=== PATIENT | male | born 1990 | race Caucasian/White ===

== ENCOUNTER 2023-09-19 13:45 | Emergency (ER) | payer MEDICAID, SELFPAY ==
[2023-09-19 13:46] VITALS: BP 137/89; PULSE 91; RESP 18; TEMP 36.4; O2SAT 99; BMI 27.4
--- NOTE | 2023-09-19 13:56 | EDS_ITS ---
HPI History of Present Illness Chief Complaint: Dental PFSH PFS Medical History no medical history Home Medications ?Medication ?Instructions ?Recorded ?Last Taken ?Type amoxicillin 875 mg-potassium 1 tab PO BID 7 days #14 tabs 09/19/23 Unknown Rx clavulanate 125 mg tablet Allergy/AdvReac Type Severity Reaction Status Date / Time No Known Allergies Allergy Verified 03/17/21 13:14 Social History (System 03/17/21 @ 13:14 by Venecia Andrea) Smoking Status: Current every day smoker tobacco type: cigarettes EXAM Physical Exam Const Vital Signs: 09/19/23 13:46 Temperature 97.5 F L Temperature Source Temporal Pulse Rate 91 Respiratory Rate 18 Blood Pressure 137/89 H Blood Pressure Mean 105 Pulse Ox 99 Oxygen Delivery Method Room [facility] MDM MDM Narrative Medical decision making narrative: HISTORY OF PRESENT ILLNESS: 32-year-old male presents with dental pain from cracked tooth. REVIEW OF SYSTEMS: Pertinent positives: dental pain Pertinent negatives: fever, sore thoat. PHYSICAL EXAM: Nursing triage notes reviewed, Vital signs reviewed Constitutional: please see mdm HENT: MMM, no evidence of dental abscess, no submandibular edema or induration, no tonsillar exudates or erythema, uvula midline, patient was controlling secretions, no drooling, no trimus, no dysphonia Eyes: Pupils equal round and reactive to light, Extraocular muscles intact Neck: No stridor, no JVD, full neck ROM Lungs: Clear to auscultation, No wheezing or rales. No increased work of breathing, no conversational dyspnea, no accessory muscle use, no nasal flaring. No respiratory distress noted Heart: Regular rate and rhythm, No murmurs, No rubs and No gallops, 2+ distal pulses (radial, femoral, posterior tibial) in all extremities MEDICAL DECISION MAKING: Chief Complaint: Dental pain MDM Narrative: The patient was hemodynamically stable, afebrile, nontoxic-appearing. Exam with dental decay and a chipped tooth on the right lower molar region. This likely the source of his pain. I considered the following differential diagnosis: Dental abscess, ANUG, Ludewig's angina, RPA, [employer], dental caries, gingivitis No clinical evidence of Alberto angina, ANUG, RPA, [employer] Gave prophylactic antimicrobial therapy. Shared decision making: I will have a discussion with the patient and or visitors regarding risk/benefits of further testing or admission. They will be made aware of of the risk/benefits inherent in this decision they will be given the opportunity to voice understanding. Impression: 1. Dental caries 2. Dental pain 3. Chronic tooth avulsion Disposition: Discharge This note was generated with [employer] dictation software. It may contain incorrect words, spelling, and punctuation that were not noted in review of the chart prior to signing. Discharge Plan Triage Chief Complaint: Dental ED Provider: Jamari Monge Dx/Rx/DC Orders Instructions: Dental Trauma Prescriptions: New amoxicillin-pot clavulanate 875-125 mg tablet 1 tab PO BID 7 Days Qty: 14 0RF Primary Care Provider: Care Physician,No Primary Referrals: Care Physician,No Primary [Primary Care Provider] - Activity Restrictions/Additional Instructions: Thank you for trusting us with your care today! Please take Tylenol (2 pills, 650 mg), ibuprofen (2 pills, 400 mg) every 6 hours as needed for pain and fever control. Please return to the emergency department if your symptoms change or worsen. Please follow with dentistry for further outpatient evaluation and management. Print Language: French Disposition Disposition: Home, Self Care Discharge Date/Time: 09/19/23 14:25
== END 2023-09-19 14:25 | disposition home or self-care (01) ==
LOC: ED 14:22
PROVIDERS: Emergency Provider Emergency Medicine; Visit Provider Emergency Medicine
DX: K02.9 Dental caries, unspecified (principal); S03.2XXA Dislocation of tooth, initial encounter; F17.210 Nicotine dependence, cigarettes, uncomplicated; X58.XXXA Exposure to other specified factors, initial encounter
CPT/HCPCS: 99282